=== PATIENT | female | born 1950 | race Caucasian/White ===

== ENCOUNTER 2022-05-14 01:13 | Inpatient (IN) | payer MEDICARE, OTHER ==
[~2022-05-14] VITALS: Ht 167.6 cm; Wt 68.0 kg
[2022-05-14] MEDS ORDERED: PANT40TA49 PO (01:51)
[2022-05-14] MEDS ORDERED: OXYB-58 PO (01:51)
[2022-05-14] MEDS ORDERED: DOCU100C36 PO (01:51)
[2022-05-14] MEDS ORDERED: POLY17PO4 PO (01:51)
[2022-05-14] MEDS ORDERED: TAMS-3 PO (01:51)
[2022-05-14] MEDS ORDERED: QUET25TA PO (01:51)
[2022-05-14] MEDS ORDERED: DONE5TAB34 PO (01:51)
[2022-05-14] MEDS ORDERED: ACET-2154 PO (01:51)
[2022-05-14] MEDS ORDERED: CHOL400T PO (01:51)
[2022-05-14] MEDS ORDERED: ATOR10TA PO (01:51)
--- NOTE | 2022-05-14 01:51 | NUR ---
BIB AMBULANCE FROM FACILITY, PLACED INTO BED #1-B, INFORMED OF PLAN OF CARE, ASSISTED INTO GOWN, PLACED ON MONITOR, BEDSIDE EKG IN PROCESS FOR MD REVIEW. PATIENT IS ALERT AND ORIENTED X3, DENIES ANY PAIN OR DISCOMFORT AT THIS TIME. HAS A MOIST COUGH, NO RESPIRATORY DISTRESS, ABD SOFT NON TENDER TO PALPATION NO S/S OF ANY EDEMA. #22G ESTABLISHED IN RIGHT FOREARM, BLOOD COLLECTED AND SENT TO LAB. SIDE RAILS UP WILL CONTINUE TO MONITOR.
[2022-05-14 01:52] LABS: HEMATOCRIT 41.6 % (31.2-41.9); MEAN CORPUSCULAR HEMOGLOBIN 32.1 uug (24.7-32.8); MEAN CORPUSCULAR VOLUME 93.2 fL (75.5-95.3); PLATELET COUNT (AUTO) 186 K/uL (179-408)
[2022-05-14 02:08] LABS: MAGNESIUM 2.2 mg/dL (1.8-2.4); PHOSPHOROUS 4.7 mg/dL (2.5-4.9)
[2022-05-14 02:13] LABS: CARBON DIOXIDE 26 mmol/L (21-32); CHLORIDE 106 mmol/L (98-107); CREATININE 1.4 mg/dL (0.6-1.3); GLUCOSE 98 mg/dL (74-106); POTASSIUM 3.6 mmol/L (3.5-5.1); UREA NITROGEN, BLOOD 33 mg/dL (7-18)
[2022-05-14 02:24] LABS: THYROID STIMULATING HORMONE 5.398 mIU/mL (0.358-3.740)
[2022-05-14 02:26] LABS: ALANINE AMINOTRANSFERASE 15 U/L (14-59); ALKALINE PHOSPHATASE 88 U/L (50-136); BILIRUBIN,DIRECT 0.1 mg/dL (0.0-0.2); BILIRUBIN,TOTAL 0.3 mg/dL (0.2-1.0); TOTAL PROTEIN, SERUM 6.8 g/dL (6.4-8.2)
[2022-05-14 02:27] LABS: ACETAMINOPHEN < 2.0 ug/mL (10-30)
[2022-05-14] MEDS ORDERED: IV NORMAL SALINE 1000 ML BAG IV ONE (02:45)
--- NOTE | 2022-05-14 02:54 | NUR ---
Normal saline infusing as per order, patient inforned of need for urine specimen and made aware that she will be admittedto the hospital. Awaitng room assignment and no change neoted in primary assessment.
--- NOTE | 2022-05-14 03:00 | NUR ---
Dr Shah spoke with Dr Chappell who accept patient to Med Surg.
[2022-05-14 03:23] LABS: ASPARTATE AMINOTRANSFERASE 21 U/L (15-37)
[2022-05-14 03:32] LABS: ETHANOL < 3 MG/DL (0-0)
--- NOTE | 2022-05-14 03:45 | NUR ---
Recieved a room assignment from 3rd floor charge nurse room 211, but unable to accept patient until after shift change due to staffing issues.
--- NOTE | 2022-05-14 03:47 | NUR ---
Ambulated to bathroom and back to bed, urine collected,
[2022-05-14 04:31] LABS: *BILIRUBIN,URIN NEGATIVE (NEGATIVE); *BLOOD, URINE 1+ (NEGATIVE); *COLOR,URINE YELLOW (YELLOW); *KETONES,URINE NEGATIVE (NEGATIVE); *UROBILINOGEN,URINE 0.2 E.U./dl (NORMAL); LEUKOCYTE ESTERASE ,URINE 2+ (NEGATIVE); NITRITE, URINE POSITIVE (NEGATIVE); PH,URINE 5.5 (5.0-8.0); UGLUCOSE NEGATIVE (NEGATIVE)
[2022-05-14 04:36] LABS: *CLARITY,URINE CLOUDY (CLEAR)
[2022-05-14 04:38] LABS: WBC,URINE TNTC /HPF (0-3)
[2022-05-14 04:39] LABS: BACTERIA,URINE MANY /HPF (NONE SEEN); SQUAMOUS EPITHELIAL CELL,UR FEW /HPF (NONE SEEN)
--- NOTE | 2022-05-14 04:57 | NUR ---
Resting, easy to arouse, no voiced c/o, no s/s of any distress noted.
[2022-05-14] MEDS: IV NS 1000 ML 1,000 ML IV PRN (04:59)
--- NOTE | 2022-05-14 06:04 | NUR ---
IVF infusing via pump, continues to rest without any c/o pain or discomfort.
--- NOTE | 2022-05-14 06:54 | NUR ---
Patient endorsed to day shift accepting nurse, patient remains stable.
--- NOTE | 2022-05-14 08:30 | NUR ---
report received from [employer]. Addendum: 05/14/22 at 1900 by NERIS GARCIA RN pt presented to er for evaluation of insomia and more ams than her baseline. pt aox3-4; brp; self care; skin intact; vitals wnl; elevated bun and crea noted; UA + for UTI. RFA 20g heplock patent and intact. pt will be admitted to [facility] on rm [address]. Dr. Chappell will F/U care.
--- NOTE | 2022-05-14 09:18 | NUR ---
REPORT WAS GIVEN TO SKI TOPPER. PT WAS TRANSFERED TO ROOM #211.
[2022-05-14 10:00] VITALS: BP 101/58
[2022-05-14] MEDS ORDERED: ACETAMINOPHEN 325 MG TABLET PO PRN (11:15)
[2022-05-14] MEDS ORDERED: MIRALAX 17 GM POWD.PACK PO PRN ×2 (11:15→18:15)
[2022-05-14 11:58] LABS: HEMATOCRIT 38.9 % (31.2-41.9); MEAN CORPUSCULAR HEMOGLOBIN 31.9 uug (24.7-32.8); MEAN CORPUSCULAR VOLUME 93.9 fL (75.5-95.3); PLATELET COUNT (AUTO) 165 K/uL (179-408)
[2022-05-14] MEDS: CEFTRIAXONE 1 G in IV DEXTROSE 5% 50 ML IV SCH (12:38)
[2022-05-14] MEDS: buPROPion SR 100 MG TABLET.SA PO SCH (13:00)
[2022-05-14 13:04] LABS: CREATININE 1.2 mg/dL (0.6-1.3); MAGNESIUM 2.2 mg/dL (1.8-2.4); PHOSPHOROUS 3.5 mg/dL (2.5-4.9)
[2022-05-14] MEDS: DOCUSATE SODIUM 100 MG CAPSULE PO SCH (17:00)
[2022-05-14 17:07] VITALS: BP 116/59
[2022-05-14] MEDS ORDERED: POTASSIUM CHLORIDE 20 MEQ TAB.PRT.SR PO ONE (18:15)
[2022-05-14] MEDS ORDERED: OXYBUTYNIN XL 5 MG TABSR PO SCH (18:15)
[2022-05-14] MEDS ORDERED: TAMSULOSIN HCL 0.4 MG CAP.SR.24H PO SCH (18:15)
--- NOTE | 2022-05-14 19:30 | NUR ---
received patient in bed, alert pleasant, no sob no chest pain, no complain of pain, but mention problem with sleep, MD aware, cont to monitor.
[2022-05-14 20:00] VITALS: BP 129/69
[2022-05-14] MEDS: QUETIAPINE FUMARATE 25 MG TABLET PO SCH (20:56)
[2022-05-14] MEDS: ATORVASTATIN 10 MG TABLET PO SCH (20:56)
[2022-05-14] MEDS: DONEPEZIL 5 MG TABLET PO SCH (20:59)
[2022-05-14] MEDS: TAMSULOSIN HCL 0.4 MG CAP.SR.24H PO SCH (20:59)
[2022-05-14] MEDS ORDERED: QUETIAPINE FUMARATE 25 MG TABLET PO SCH (21:00)
[2022-05-14] MEDS ORDERED: DONEPEZIL 5 MG TABLET PO SCH (21:00)
[2022-05-14] MEDS ORDERED: ATORVASTATIN 10 MG TABLET PO SCH (21:00)
--- NOTE | 2022-05-14 21:20 | NUR ---
Spoke to Dr Chappell and maggy the Kdur meds, stated to discontinue the meds, and patient does not need it.
[2022-05-15 05:24] VITALS: BP 111/55
[2022-05-15] MEDS: PANTOPRAZOLE SODIUM 40 MG TABLET.DR PO SCH (06:09)
[2022-05-15 07:51] LABS: HEMATOCRIT 40.7 % (31.2-41.9); MEAN CORPUSCULAR HEMOGLOBIN 31.9 uug (24.7-32.8); MEAN CORPUSCULAR VOLUME 94.3 fL (75.5-95.3); PLATELET COUNT (AUTO) 164 K/uL (179-408)
[2022-05-15 08:01] LABS: CREATININE 1.3 mg/dL (0.6-1.3); MAGNESIUM 2.1 mg/dL (1.8-2.4); PHOSPHOROUS 2.7 mg/dL (2.5-4.9); POTASSIUM 3.7 mmol/L (3.5-5.1)
[2022-05-15 08:49] VITALS: BP 125/64
[2022-05-15] MEDS ORDERED: PANTOPRAZOLE SODIUM 40 MG TABLET.DR PO SCH (09:00)
[2022-05-15] MEDS ORDERED: CHOLECALCIFEROL 400 UNITS TABLET PO SCH (09:00)
[2022-05-15] MEDS ORDERED: DOCUSATE SODIUM 100 MG CAPSULE PO SCH (09:00)
[2022-05-15] MEDS: OXYBUTYNIN XL 5 MG TABSR PO SCH (09:17)
[2022-05-15] MEDS: CHOLECALCIFEROL 1,000 UNIT TABLET PO SCH (09:17)
[2022-05-15] MEDS: DOCUSATE SODIUM 100 MG CAPSULE PO SCH ×2 (09:17→16:06)
[2022-05-15] MEDS: ACETAMINOPHEN 325 MG TABLET PO SCH ×2 (09:18→16:06)
[2022-05-15] MEDS: buPROPion SR 100 MG TABLET.SA PO SCH (09:18)
[2022-05-15] MEDS: CEFTRIAXONE 1 G in IV DEXTROSE 5% 50 ML IV SCH (13:30)
--- NOTE | 2022-05-15 15:00 | NUR ---
Patient refused IV fluids
[2022-05-15] MEDS: IV NS 1000 ML 1,000 ML IV PRN (15:31)
[2022-05-15 18:11] VITALS: BP 159/83
--- NOTE | 2022-05-15 19:48 | NUR ---
Notify Dr Chappell that patient refusing iv fluids and some meds at night, MD respond to dc fluids and continue to document refused meds, if patient chose and pick meds on she likes.
[2022-05-15 20:00] VITALS: BP 111/64
[2022-05-15] MEDS: QUETIAPINE FUMARATE 25 MG TABLET PO SCH (20:12)
[2022-05-15] MEDS: ATORVASTATIN 10 MG TABLET PO SCH (20:12)
[2022-05-15] MEDS: DONEPEZIL 5 MG TABLET PO SCH (20:14)
[2022-05-15] MEDS: TAMSULOSIN HCL 0.4 MG CAP.SR.24H PO SCH (20:14)
--- NOTE | 2022-05-15 20:43 | NUR ---
Patient awake, ambulate to hallways, stated she's doing her exercises so that she will get stronger, no sob, no chest pain, cont abx with adverse reaction noted, refused iv fluids at this time, cont to offer.
[2022-05-16 06:11] VITALS: BP 124/63
[2022-05-16] MEDS: PANTOPRAZOLE SODIUM 40 MG TABLET.DR PO SCH (07:29)
[2022-05-16 07:31] LABS: CARBON DIOXIDE 25 mmol/L (21-32); CHLORIDE 110 mmol/L (98-107); CREATININE 1.4 mg/dL (0.6-1.3); GLUCOSE 81 mg/dL (74-106); MAGNESIUM 2.1 mg/dL (1.8-2.4); POTASSIUM 3.8 mmol/L (3.5-5.1); UREA NITROGEN, BLOOD 20 mg/dL (7-18)
[2022-05-16 07:40] LABS: HEMATOCRIT 37.3 % (31.2-41.9); MEAN CORPUSCULAR VOLUME 93.4 fL (75.5-95.3); PLATELET COUNT (AUTO) 161 K/uL (179-408)
--- NOTE | 2022-05-16 08:00 | NUR ---
Pt alert and oriented x 4. Pt ambulatory with good balance. IV on right forearm. intact and flush well. Pt is in no acute distress.
[2022-05-16] MEDS: DOCUSATE SODIUM 100 MG CAPSULE PO SCH ×3 (08:05→17:00)
[2022-05-16] MEDS: CHOLECALCIFEROL 1,000 UNIT TABLET PO SCH (08:05)
[2022-05-16] MEDS: OXYBUTYNIN XL 5 MG TABSR PO SCH (08:05)
[2022-05-16] MEDS: buPROPion SR 100 MG TABLET.SA PO SCH ×2 (08:07→08:44)
[2022-05-16] MEDS: ACETAMINOPHEN 325 MG TABLET PO SCH ×3 (08:07→17:00)
[2022-05-16 12:30] VITALS: BP 135/69
[2022-05-16] MEDS: CEFTRIAXONE 1 G in IV DEXTROSE 5% 50 ML IV SCH (13:15)
[2022-05-16 17:59] VITALS: BP 144/53
--- NOTE | 2022-05-16 18:30 | NUR ---
Pt had good appetite for her meals. Pt denies any c/o pain.
[2022-05-16 20:07] VITALS: BP 149/69
[2022-05-16] MEDS: ATORVASTATIN 10 MG TABLET PO SCH (21:00)
[2022-05-16] MEDS: DONEPEZIL 5 MG TABLET PO SCH (21:00)
[2022-05-16] MEDS: TAMSULOSIN HCL 0.4 MG CAP.SR.24H PO SCH (21:00)
[2022-05-16] MEDS: QUETIAPINE FUMARATE 25 MG TABLET PO SCH (21:22)
[2022-05-17 04:09] VITALS: BP 121/55
[2022-05-17] MEDS: PANTOPRAZOLE SODIUM 40 MG TABLET.DR PO SCH ×2 (06:15→06:17)
--- NOTE | 2022-05-17 06:43 | NUR ---
Patient slept well, easy to arouse AAO x3. In no acute distress, denies any pain/discomfort. Refused bedtime pills except for seroquel. Needs assessed and attended to.
--- NOTE | 2022-05-17 07:54 | NUR ---
RECEIVED PATIENT IN BED AWAKE ALERT AND ORIENTED DENIES PAIN OR DISCOMFORTS ON ROOM AIR WITH NO SHORTNESS OF BREATH AT THIS TIME.CALL LIGHTS AND PERSONAL BELONGINGS ARE WITHIN EASY REACH EATING HER BREAKFAST AT THIS TIME.WILL CONTINUE TO OBSERVE.
[2022-05-17] MEDS: DOCUSATE SODIUM 100 MG CAPSULE PO SCH ×2 (08:17→17:00)
[2022-05-17] MEDS: OXYBUTYNIN XL 5 MG TABSR PO SCH (08:17)
[2022-05-17] MEDS: ACETAMINOPHEN 325 MG TABLET PO SCH ×2 (08:18→17:00)
[2022-05-17] MEDS: CHOLECALCIFEROL 1,000 UNIT TABLET PO SCH (08:18)
[2022-05-17] MEDS: buPROPion SR 100 MG TABLET.SA PO SCH (08:18)
[2022-05-17] MEDS: MEROPENEM 1 G in IV NORMAL SALINE 100 ML IV SCH ×2 (11:34→22:00)
[2022-05-17 12:30] VITALS: BP 129/51
[2022-05-17 16:00] VITALS: BP 140/78
--- NOTE | 2022-05-17 17:53 | NUR ---
PATIENT REFUSED ALL HER ORAL MEDICATIONS TODAY STATED THAT SHE DOES NOT NEED THEM WILL ONLY TAKE HER IV ATB PATIENT EDUCATED ON THE NEED TO BE COMPLIANT WITH HER MEDICATIONS ORDERED BY HER DOCTOR AND SHE EXPRESSED UNDERSTANDING WILL INFORM DR ENGLISH.
[2022-05-17 20:00] VITALS: BP 151/76
[2022-05-17] MEDS: ATORVASTATIN 10 MG TABLET PO SCH (20:19)
[2022-05-17] MEDS: QUETIAPINE FUMARATE 25 MG TABLET PO SCH (20:19)
[2022-05-17] MEDS ORDERED: PANT40TA49 PO (20:20)
[2022-05-17] MEDS ORDERED: QUET25TA36 PO (20:20)
[2022-05-17] MEDS ORDERED: ACET325T53 PO (20:20)
[2022-05-17] MEDS ORDERED: POLY17PO4 PO (20:20)
[2022-05-17] MEDS ORDERED: BUPR100T6 PO (20:20)
[2022-05-17] MEDS ORDERED: DONE5TAB34 PO (20:20)
[2022-05-17] MEDS ORDERED: ATOR10TA PO (20:20)
[2022-05-17] MEDS ORDERED: TAMS-3 PO (20:20)
[2022-05-17] MEDS ORDERED: OXYB5TAB29 PO (20:20)
[2022-05-17] MEDS ORDERED: CHOL100062 PO (20:20)
[2022-05-17] MEDS ORDERED: DOCU-141 PO (20:20)
[2022-05-17] MEDS ORDERED: MERO1VIA23 IV (20:20)
[2022-05-17] MEDS: DONEPEZIL 5 MG TABLET PO SCH (20:22)
[2022-05-17] MEDS: TAMSULOSIN HCL 0.4 MG CAP.SR.24H PO SCH (20:23)
[2022-05-18 04:00] VITALS: BP 148/54
[2022-05-18] MEDS: PANTOPRAZOLE SODIUM 40 MG TABLET.DR PO SCH ×2 (06:13→06:25)
[2022-05-18] MEDS: ACETAMINOPHEN 325 MG TABLET PO SCH (08:26)
[2022-05-18] MEDS: CHOLECALCIFEROL 1,000 UNIT TABLET PO SCH (08:26)
[2022-05-18] MEDS: buPROPion SR 100 MG TABLET.SA PO SCH (08:41)
[2022-05-18] MEDS: OXYBUTYNIN XL 5 MG TABSR PO SCH (08:41)
[2022-05-18 08:42] LABS: HEMATOCRIT 40.2 % (31.2-41.9); MEAN CORPUSCULAR HEMOGLOBIN 31.9 uug (24.7-32.8); MEAN CORPUSCULAR VOLUME 93.6 fL (75.5-95.3); PLATELET COUNT (AUTO) 170 K/uL (179-408)
[2022-05-18] MEDS: DOCUSATE SODIUM 100 MG CAPSULE PO SCH (08:42)
[2022-05-18 09:00] VITALS: BP 118/51
[2022-05-18 09:05] LABS: CARBON DIOXIDE 29 mmol/L (21-32); CHLORIDE 110 mmol/L (98-107); CREATININE 1.5 mg/dL (0.6-1.3); GLUCOSE 82 mg/dL (74-106); MAGNESIUM 2.2 mg/dL (1.8-2.4); PHOSPHOROUS 3.1 mg/dL (2.5-4.9); POTASSIUM 4.5 mmol/L (3.5-5.1); UREA NITROGEN, BLOOD 24 mg/dL (7-18)
[2022-05-18] MEDS: MEROPENEM 1 G in IV NORMAL SALINE 100 ML IV SCH (10:22)
[2022-05-18 11:52] VITALS: BP 109/56
--- NOTE | 2022-05-18 14:15 | NUR ---
RECEIVED REPORT FROM ANA HOLLINGSWORTH RN. PATIENT IS ALERT & ORIENTED X3-4, WITH PERIODS OF FORGETFULNESS. VITAL SIGNS STABLE. PATIENT VOIDS ADEQUATELY. PATIENT TOLERATES MEDICATIONS AND DIET WELL, HOWEVER PATIENT CONTINUES TO REFUSE CERTAIN MEDICATIONS. RN EDUCATED REGARDING MEDICATION USAGE AND RISKS OF NOT TAKING IT, PATIENT CONTINUES TO REFUSE. PATIENT DENIES PAIN. NO ACUTE DISTRESS. FALL PRECAUTIONS OBSERVED. PATIENT IS SET TO BE DISCHARGED. RN INFORMS PATIENT. PATIENT BELONGINGS ACCOUNTED FOR AND BELONGINGS LIST SIGNED. DISCHARGE EDUCATION PROVIDED. ALL QUESTIONS ANSWERED. DISCHARGE DOCUMENTS SIGNED. RN CALLED TO GIVE REPORT TO [facility]. REPORT GIVEN TO ZABRINA LEONE. ALL QUESTIONS ANSWERED. RN PROVIDED REPORT TO EMT. ALL QUESTIONS ANSWERED. PATIENT LEFT WITH EMT IN STABLE CONDITION.
== END 2022-05-18 14:15 | DRG 871 ==
LOC: ER 01:32 → TRANSITION 02:41 → MED 08:47 → MEDSURG3 05-18 05:29
PROVIDERS: ADMIT Internal Medicine; ATTEND Internal Medicine
DX: A41.9 Sepsis, unspecified organism (principal); G93.41 Metabolic encephalopathy; N17.0 Acute kidney failure with tubular necrosis; N39.0 Urinary tract infection, site not specified; Z16.12 Extended spectrum beta lactamase (ESBL) resistance; F03.918 Unspecified dementia, unspecified severity, with other behavioral disturbance; E86.0 Dehydration; F17.210 Nicotine dependence, cigarettes, uncomplicated; F20.9 Schizophrenia, unspecified; K21.9 Gastro-esophageal reflux disease without esophagitis; Z87.440 Personal history of urinary (tract) infections; Z20.822 Contact with and (suspected) exposure to COVID-19; E78.5 Hyperlipidemia, unspecified; F32.9 Major depressive disorder, single episode, unspecified; B96.20 Unspecified Escherichia coli [E. coli] as the cause of diseases classified elsewhere; G47.00 Insomnia, unspecified
CPT/HCPCS: 36415; 71045; 83735; 84100; 84443; 84484; 85025; 87040; 93005; A4663; G0378; G0480; J0696; J2185; J7040